=== PATIENT | female | born 1995 | race Caucasian/White ===

== ENCOUNTER 2020-01-27 17:05 | Emergency (ER) | payer OTHER, SELFPAY ==
[2020-01-27 17:32] VITALS: BP 108/48; PULSE 64; RESP 16; TEMP 37.4; O2SAT 99
--- NOTE | 2020-01-27 17:53 | ED.GENADULT ---
HPI - General Adult General Chief complaint: Upper Respiratory Infection Stated complaint: Sore throat Time Seen by Provider: 01/27/20 17:53 Source: patient and RN notes reviewed Mode of arrival: ambulatory Limitations: no limitations History of Present Illness HPI narrative: This is a 24 years old female presented office for evaluation of sore throat for 2-day. Also reports sinus drainage. She has been taking Merced and cough drops for symptom. Denies sick contact at home. She did not receive influenza vaccine for the season. She does not smoke however she does e-cigarettes. Related Data Home Medications Medication Instructions Recorded Confirmed norgestimate-ethinyl estradiol 1 tablet PO DAILY 01/27/20 01/27/20 [Sprintec (28)] sertraline 50 mg PO DAILY 01/27/20 01/27/20 Allergies Allergy/AdvReac Type Severity Reaction Status Date / Time bismuth subsalicylate Allergy Intermediate Itching Verified 01/27/20 17:31 paroxetine [Paxil] AdvReac Intermediate nausea Verified 01/27/20 17:31 Review of Systems Review of Systems: Narrative: CONSTITUTIONAL: Denies fever ENT: Denies rhinorrhea, congestion, otalgia. CARDIOVASCULAR: Denies chest pain, palpitation RESPIRATORY: Denies dyspnea, wheezing, cough GASTROINTESTINAL: Denies abdominal pain, nausea, vomiting, diarrhea. GENITOURINARY: Denies urinary symptoms or discharge SKIN: Denies rash MUSCULOSKELETAL: Denies acute back pain NEUROLOGIC: Denies lightheaded PMFSH Surgical History Surgical History H/O section Social History Social History (Updated 01/27/20 @ 18:24 by ORLY Severino) Tobacco type: e-cigarettes Smokeless tobacco user: dissolvable tobacco Alcohol intake: never Gender identity (if verbalized by the patient): Female Comments At time of signature, I agree with nursing past medical, surgical, social and family history. There is no relevant family history pertinent to the presenting complaint. Exam Narrative: Exam Narrative: GENERAL: This is a well-nourished, well-developed patient, in no apparent distress. EYES: Sclera clear/white. Vision is grossly intact. EARS: External ears normal, auditory canals clear and without drainage, TMs normal without perforation. Hearing grossly intact. NOSE: External nose normal with no obvious nasal discharge, nares without redness, no rhinorrhea. THROAT: Mucous membranes moist, posterior pharynx erythema, tonsils 2+ with exudative NECK: Neck supple, non-tender without lymphadenopathy, masses or thyromegaly. CARDIOVASCULAR: Regular rate and rhythm without murmurs, gallops, or rubs. RESPIRATORY: Clear to auscultation. Breath sounds equal bilaterally. No wheezes, rales, or rhonchi. GASTROINTESTINAL: Abdomen soft, non-tender, nondistended. Bowel sounds are active. No hepato-splenomegaly, or palpable masses. No guarding. SKIN: warm, intact with no suspicious lesions or rash, good texture and turgor. NEURO: awake, alert, and oriented to person, place and time. There were no obvious focal neurologic abnormalities. Steady gait [place] Coma Scale Eye Opening: Spontaneous 4 Luz Coma Scale Motor: Obeys Commands 6 [place] Coma Scale Verbal: Oriented 5 Course Vital Signs Vital signs: Vital Signs Temperature 99.4 F 01/27/20 17:32 Pulse Rate 64 01/27/20 17:32 Respiratory Rate 16 01/27/20 17:32 Blood Pressure 108/48 L 01/27/20 17:32 Pulse Oximetry 99 01/27/20 17:32 Temperature 99.4 F 01/27/20 17:32 Pulse Rate 64 01/27/20 17:32 Respiratory Rate 16 01/27/20 17:32 Blood Pressure 108/48 L 01/27/20 17:32 Pulse Oximetry 99 01/27/20 17:32 Medical Decision Making MDM Narrative Medical decision making narrative: Discharge instructions reviewed with patient, as well as provided in writing per nursing staff. The instructions also include specific and strict return/GO TO THE ER as well as f/u information.
== END 2020-01-27 18:01 | disposition home or self-care (01) ==
PROVIDERS: Emergency Provider Nurse Practitioner; PCP Emergency Medicine
DX: J02.0 Streptococcal pharyngitis (principal); F17.200 Nicotine dependence, unspecified, uncomplicated; M19.90 Unspecified osteoarthritis, unspecified site; F41.9 Anxiety disorder, unspecified; F32.9 Major depressive disorder, single episode, unspecified
CPT/HCPCS: 87880; 99213; G0463

== ENCOUNTER 2020-02-25 08:08 | Emergency (ER) | payer OTHER, SELFPAY ==
[2020-02-25 08:23] VITALS: BP 120/69; PULSE 73; RESP 16; TEMP 37.2; O2SAT 99
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
== END 2020-02-25 09:07 | disposition home or self-care (01) ==
PROVIDERS: Emergency Provider Nurse Practitioner; PCP Emergency Medicine
DX: J02.0 Streptococcal pharyngitis (principal); F17.200 Nicotine dependence, unspecified, uncomplicated; M19.90 Unspecified osteoarthritis, unspecified site; F41.9 Anxiety disorder, unspecified; F32.9 Major depressive disorder, single episode, unspecified
CPT/HCPCS: 87880; 99213; G0463

== ENCOUNTER 2020-05-16 17:38 | Emergency (ER) | payer OTHER, SELFPAY ==
[2020-05-16 17:50] VITALS: BP 124/78; PULSE 81; RESP 20; TEMP 37.5; O2SAT 100
--- NOTE | 2020-05-16 18:07 | ED.GENADULT ---
HPI - General Adult General Chief complaint: Ear Stated complaint: possible ear infection Time Seen by Provider: 05/16/20 18:07 Source: patient and RN notes reviewed Mode of arrival: ambulatory Limitations: no limitations History of Present Illness HPI narrative: 24-year-old female presents with complaints of intermittently bilateral otalgia, itching, and drainage (green-yellow drainage that turns milky white at times) for the past 1-2 months. Melissa says she has been having ear problems off and on for approximately 1 year. Denies swimming or getting water into ear. Trouble hearing. Denies URI symptoms. No high fevers or chills. Denies injury to the ear. No nasal drainage and congestion. Denies tinnitus and dizziness. LMP 1 week ago. Remains active. The patient reports she have not been diagnosed with COVID-19. The patient reports she is not waiting for the results of a COVID-19 lab test. The patient reports she do not have fever, chills, weakness, fatigue, myalgia, or facial swelling. The patient reports she do not have a new or worsening cough or shortness of breath. Denies chest pain. The patient reports she do not have any rhinorrhea, congestion, sore throat, nausea, vomiting, abdominal pain, and diarrhea. Tolerating po intake well. Denies recent traveling. Denies concerns for COVID-19 or exposures been home with limited outdoor exposure except for essential household needs and return home. At this time, patient is not suspected of having COVID-19. Some parts of this dictation were generated by voice recognition software and may contain typographical and/or grammatical inaccuracies. Related Data Home Medications Medication Instructions Recorded Confirmed hydroxyzine HCl 25 mg PO QID 05/16/20 05/16/20 tramadol 05/16/20 Allergies Allergy/AdvReac Type Severity Reaction Status Date / Time bismuth subsalicylate Allergy Intermediate Itching Verified 05/16/20 18:06 paroxetine [Paxil] AdvReac Intermediate nausea Verified 05/16/20 18:06 Review of Systems Review of Systems: Narrative: CONSTITUTIONAL: Denies fever, chills, sweats. EYES: Denies visual changes, redness, discharge. ENT: Denies rhinorrhea, congestion, sore throat. Complains of bilateral otalgia, itching, ear drainage. CARDIOVASCULAR: Denies chest pain, palpitations, edema. RESPIRATORY: Denies dyspnea, wheezing, cough. GASTROINTESTINAL: Denies abdominal pain, nausea, vomiting, diarrhea. GENITOURINARY: Denies dysuria, hematuria, abnormal discharge. SKIN: Denies rash or itching. MUSCULOSKELETAL: Denies acute back pain, joint pain, or myalgia. NEUROLOGIC: Denies numbness or focal weakness. PSYCHIATRIC: Denies anxiety or depression. All systems reviewed & are unremarkable except as noted in HPI and below. [facility] Past Medical History Medical History (Updated 05/17/20 @ 00:00 by Background Darichardon) Anxiety Arthritis Back pain delivery delivered Chronic ear infection Depression Hernia, inguinal, left Surgical History Surgical History H/O section X3 History of hand surgery LT finger sugery History of hernia surgery LT inguinal Family History Family History Father , Hit by a vehicle No problems noted. Mother , Shot in the face No problems noted. Social History Social History Tobacco type: cigarettes and e-cigarettes/vaping Smokeless tobacco user: dissolvable tobacco Alcohol intake: current Alcohol use details: Rarely Substance use: never Living arrangements: with family Occupation/Education: unemployed Gender identity (if verbalized by the patient): Female Comments At time of signature, agree with nurse past medical, surgical, social, and family history. There is relevant patient's past medical
== END 2020-05-16 18:32 | disposition home or self-care (01) ==
PROVIDERS: Emergency Provider Nurse Practitioner Family
DX: H60.93 Unspecified otitis externa, bilateral (principal)
CPT/HCPCS: 99213; G0463

== ENCOUNTER 2020-11-04 02:28 | Emergency (ER) | payer OTHER, SELFPAY ==
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
== END 2020-11-04 02:57 | disposition left against medical advice (07) ==
PROVIDERS: Emergency Provider Emergency Medicine
DX: Z13.88 Encounter for screening for disorder due to exposure to contaminants (principal); M19.90 Unspecified osteoarthritis, unspecified site; F17.290 Nicotine dependence, other tobacco product, uncomplicated
CPT/HCPCS: 99281

== ENCOUNTER 2021-06-18 19:05 | Emergency (ER) | payer OTHER, SELFPAY ==
[2021-06-18 19:39] VITALS: BP 128/84; PULSE 77; RESP 14; TEMP 36.8; O2SAT 100
[2021-06-18 19:43] VITALS: BP 128/84; PULSE 77; RESP 14; TEMP 36.8; O2SAT 100
--- NOTE | 2021-06-18 19:48 | ED.GENADULT ---
HPI - General Adult General Chief complaint: Dental/Oral Stated complaint: dental pain Time Seen by Provider: 06/18/21 19:44 History of Present Illness HPI narrative: Patient is a 25-year-old female comes to the ED today complaining of some dental pain. The pain is in her right upper posterior molar where she has a known cavity yet. The pain has been there for about 3 years. She cannot afford to see a dentist unfortunately. She denies any swelling. She comes to the ED today because she has noticed an increase drainage from the area around the tooth that is foul tasting and consistent with previous dental infections that she has had. Related Data Home Medications Medication Instructions Recorded Confirmed hydroxyzine HCl 25 mg PO QID 05/16/20 05/16/20 tramadol 05/16/20 Allergies Allergy/AdvReac Type Severity Reaction Status Date / Time bismuth subsalicylate Allergy Intermediate Itching Verified 05/16/20 18:06 paroxetine [Paxil] AdvReac Intermediate nausea Verified 05/16/20 18:06 Review of Systems Constitutional: Constitutional: Reports as per HPI, Denies fever(s), Denies night sweats and Denies weakness ENT: Comments: See HPI for dental pain Cardiovascular: Cardiovascular: Denies chest pain, Denies edema, Denies leg edema, Denies dyspnea and Denies orthopnea Respiratory: Respiratory: Denies cough and Denies dyspnea Gastrointestinal: Gastrointestinal: Denies abdominal pain, Denies constipation, Denies diarrhea, Denies nausea and Denies vomiting Musculoskeletal: Musculoskeletal: Denies abnormal gait, Denies back pain, Denies numbness and Denies tingling Neurologic: Denies Abnormal speech present, Denies abnormal gait, Denies numbness, Denies tingling and Denies weakness Psychiatric: Psychiatric: Denies homicidal ideation and Denies suicidal ideation [facility] Past Medical History Medical History Anxiety Arthritis Back pain delivery delivered Chronic ear infection Depression Hernia, inguinal, left Surgical History Surgical History H/O section X3 History of hand surgery LT finger sugery History of hernia surgery LT inguinal Family History Family History Father , Hit by a vehicle No problems noted. Mother , Shot in the face No problems noted. Social History Social History Tobacco type: cigarettes and e-cigarettes/vaping Smokeless tobacco user: dissolvable tobacco Alcohol intake: current Alcohol use details: Rarely Substance use: never Gender identity (if verbalized by the patient): Female Exam Const: General: cooperative, healthy appearing, comfortable, no acute distress, well developed, alert, awake and Physically active Orientation/consciousness: patient oriented x3 HENMT: Head: normal to inspection, normocephalic and atraumatic Ears: external ears normal General nose exam: Normal external nose present Teeth image: 1. Dental carry. This area is tender to palpate. However surrounding gingiva is nonedematous, no induration, no fluctuance Eyes: Pupils: Equal, round and reactive pupils present EOM: EOMs intact bilaterally Neck: Neck: normal visual inspection Chest: Chest palpation & inspection: normal inspection of the chest and no tenderness Resp: Effort & Inspection: normal respiratory effort and able to speak in complete sentences Auscultation: clear to auscultation bilaterally Cardio: Rate: regular rate Rhythm: regular rhythm GI: Inspection: normal to inspection GI Palp: No abdominal tenderness : General: Yes no CVA tenderness Back/Spine/Pelvis: Back: no CVA tenderness Skin: General skin exam: normal color and no rashes or lesions noted Lesions: no lesio
== END 2021-06-18 21:13 | disposition home or self-care (01) ==
LOC: ANHED 21:07
PROVIDERS: Emergency Provider Emergency Medicine; PCP Emergency Medicine
DX: K02.9 Dental caries, unspecified (principal); M19.90 Unspecified osteoarthritis, unspecified site; F17.290 Nicotine dependence, other tobacco product, uncomplicated
CPT/HCPCS: 99283

== ENCOUNTER 2022-01-22 11:59 | Emergency (ER) | payer OTHER, SELFPAY ==
[2022-01-22 12:19] VITALS: BP 129/66; PULSE 98; RESP 18; TEMP 36.7; O2SAT 100
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
== END 2022-01-22 13:00 | disposition left against medical advice (07) ==
PROVIDERS: Emergency Provider Nurse Practitioner Family
DX: R51.9 Headache, unspecified (principal); S09.90XA Unspecified injury of head, initial encounter; V86.15XA Passenger of 3- or 4- wheeled all-terrain vehicle (ATV) injured in traffic accident, initial encounter; M19.90 Unspecified osteoarthritis, unspecified site
CPT/HCPCS: 99212; G0463

== ENCOUNTER 2024-03-28 01:28 | Day surgery (SDC) | payer OTHER, SELFPAY ==
[2024-03-22 14:02] VITALS: BMI 29.9
--- NOTE | 2024-03-22 14:07 | PC.NURSE ---
Report to the Outpatient Waiting Room, entrance under the green pavilion located off [facility], at time _0630_ on date _[id number]_. Planned Procedure Time: _0830_. Time changes happen often and if your time is changed the preop area will call you the afternoon before. - You and your visitor will be asked to self-screen and do not enter if you have any COVID symptoms. - A mask is optional within the hospital at this time. Patients may have clear liquids (water, carbonated beverages, clear teas, apple juice) until 3 hours prior to surgery with a maximum of 20 ounces. - No food from midnight until time of surgery Take the following medications with a SIP of water the morning of surgery: __Propanolol and if needed Hydroxyzine DO NOT STOP ANY OF YOUR OTHER PRESCRIPTION MEDICATIONS PRIOR TO SURGERY ?EXCEPT THE FOLLOWING Medications to discontinue per physician None Date to take last dose Please no make-up, nail hungarian, hairspray, perfume, deodorant, or body powder the day of surgery. No jewelry (including any body piercings) or valuables the day of surgery, leave them at home. Please take a shower or bath the night before, or the morning of, surgery with an antibacterial soap. Wear comfortable, loose fitting clothing. - Jewelry must be removed prior to entering the operating room. Rings and piercings that are not removed may be cut off. - The hospital will not accept responsibility for valuables. - Please leave all valuables, including medications, at home the day of surgery. If you are going home after surgery, a licensed flatbed truck driver must drive you home. - NO public transportation without another adult if you receive anesthesia. - We recommend that an adult stay with you for 24 hours following discharge. - We also recommend that you do not drive, make important decision, drink alcoholic beverages, or take any drugs that were not prescribed by your health care provider for at least 24 hours after your discharge time. Follow any additional instructions given to you from your surgeon. If you or anyone in your household have experienced Covid symptoms in the past week, please notify your surgeon or the nurse liaison at the phone number below for possible testing. Telephone instructions given to __Melissa__and asked if any additional questions and then verbalized understanding. Patient advised to call surgeon office or pre surgery nurse liaison [phone] if any additional questions.
[2024-03-28 06:50] VITALS: BP 143/84; PULSE 58; RESP 18; TEMP 36.6; O2SAT 96
[2024-03-28] MEDS: ACETAMINOPHEN 500 MG TABLET 1000 MG PO (07:35)
[2024-03-28] MEDS: LACTATED RINGERS 1,000 ML 30 ML IV CONT (07:36)
[2024-03-28] MEDS: KETOROLAC 15 MG/ML VIAL (*BKC) IV PUSH (07:36)
--- NOTE | 2024-03-28 08:15 | WPDANESEPPF ---
Anes - Initial Pre Proc Eval Procedure: Operation Date: 03/28/24 08:30 Proposed Procedures p Laparoscopic Bilateral Salpingectomy - Jerald George MD Date/Time: 03/28/24 08:15 Surgeon: Jerald George MD Pre Op Diagnosis: Female Serilization Patient Data Age: 28 Gender: F Height: 1.65 m Weight: 76.1 kg Last Vital Signs Temp 97.9 F 03/28/24 06:50 Pulse 58 L 03/28/24 06:50 Resp 18 03/28/24 06:50 BP 143/84 H 03/28/24 06:50 Pulse Ox 96 03/28/24 06:50 O2 Del Method Room Air 03/28/24 06:50 Allergies Allergy/AdvReac Type Severity Reaction Status Date / Time bismuth subsalicylate Allergy Intermediate Itching Verified 03/28/24 07:10 paroxetine [Paxil] AdvReac Intermediate nausea Verified 03/28/24 07:10 Home Medications Medication Instructions Recorded Confirmed Type fluphenazine decanoate 25 mg/mL 25 mg IM MONTHLY 03/22/24 03/28/24 History injection solution hydroxyzine pamoate 25 mg capsule 25 mg PO QID PRN Anxiety 03/22/24 03/28/24 History propranolol 10 mg tablet 10 mg PO BID 03/22/24 03/28/24 History Patient hx anesthesia problems: none Family hx anesthesia problems: none Results Review: All pre-operative results and documents have been reviewed as part of the pre-operative evaluation. [facility] Past Medical History Medical History Anxiety Arthritis Back pain delivery delivered Chronic ear infection Depression Hernia, inguinal, left Surgical History Surgical History H/O section X3 History of hand surgery LT finger sugery History of hernia surgery LT inguinal Family History Family History Father , Hit by a vehicle No problems noted. Mother , Shot in the face No problems noted. Social History Social History Tobacco type: e-cigarettes/vaping Smokeless tobacco user: dissolvable tobacco Alcohol intake: current Drinks per week: 4 Alcohol use details: Rarely Substance use: never Substance use type: marijuana Other substance usage details: once or twice a day Living arrangements: with family Occupation/Education: unemployed Gender identity (if verbalized by the patient): Female Spiritual care concerns: No Anes - Eval Final PreProcedure Day of Procedure 03/28/24 08:15 Patient weight: normal Heart: regular rate and rhythm Lungs: clear to auscultation Airway: Mallampati scale class II Neurological: alert and oriented Last oral intake: >/= 8 hours ASA classification: II Emergent: no Anesthetic plan: proceed Anesthesia type and monitoring: general ETT and standard monitoring Results Review: All pre-operative results and documents have been reviewed as part of the pre-operative evaluation. Pt vapes daily, vaped this am. Informed Consent: The patient's anesthetic plan and its attendant risks and benefits were discussed with the patient/family/POA. Questions were solicited and answers provided to the satisfaction of the patient/family/POA.
--- NOTE | 2024-03-28 08:44 | PM.IMHP ---
H&P: HPI History of Present Illness Date/Time: 03/28/24 08:44 Chief Complaint: Unwanted fertility Narrative: 28-year-old female with unwanted fertility. We have agreed to perform laparoscopic bilateral salpingectomy The patient understands the details of the procedure. The procedure has been explained in detail. She understands the risks. She understands that injuries may occur that result in hospitalization, more surgery, and severe illness. She understands risk of hemorrhage and infection. She denies any chest pain or shortness of breath. She denies any nausea, vomiting, fever, chills. Review of Systems Review of Systems: All systems reviewed & are unremarkable except as noted in HPI and below Constitutional: Constitutional: Denies chills, Denies fatigue, Denies fever(s) and Denies weakness Eyes: Eyes: Denies blurry vision, Denies change in vision, Denies loss of peripheral vision, Denies loss of vision, Denies other visual disturbances and Denies eye pain ENT: Denies vertigo, Denies dizziness, Denies hearing loss, Denies mouth pain, Denies nasal obstruction, Denies neck mass and Denies neck pain Cardiovascular: Cardiovascular: Denies chest pain, Denies diaphoresis, Denies syncope, Denies leg edema and Denies dyspnea Respiratory: Respiratory: Denies chest congestion, Denies cough, Denies hemoptysis, Denies dyspnea and Denies wheezing Gastrointestinal: Gastrointestinal: Denies abdominal pain, Denies constipation, Denies diarrhea, Denies nausea and Denies vomiting Genitourinary: Genitourinary: Denies hematuria, Denies change in libido, Denies nocturia, Denies genital lesions, Denies flank pain and Denies urinary urgency Musculoskeletal: Musculoskeletal: Denies abnormal gait, Denies back pain, Denies myalgias, Denies arthralgias, Denies joint swelling, Denies muscle weakness and Denies neck pain Integumentary/Breasts: Skin/Breast: Denies swelling, Denies breast pain, Denies breast mass, Denies dry skin, Denies nipple discharge, Denies unusual bruising and Denies jaundice Neurologic: Denies Neuro-related abnormal movements, Denies Abnormal speech present, Denies abnormal gait, Denies behavioral changes, Denies confusion, Denies vertigo, Denies dizziness, Denies syncope, Denies loss of vision, Denies memory loss, Denies convulsions and Denies weakness Psychiatric: Psychiatric: Denies abnormal sleep pattern, Denies behavioral changes, Denies change in libido, Denies confusion, Denies depression, Denies anhedonia and Denies memory loss Endocrine: Endocrine: Reports no additional endocrine complaints, Denies change in libido and Denies fatigue Hematologic/Lymphatic: Hematologic/Lymphatic: Reports no additional hematologic/lymphatic complaints Allergic/Immunologic: Allergic/Immunologic: Reports no additional allergic/immunologic complaints and Denies wheezing PMFSH Past Medical History Medical History Anxiety Arthritis Back pain delivery delivered Chronic ear infection Depression Hernia, inguinal, left Surgical History Surgical History H/O section X3 History of hand surgery LT finger sugery History of hernia surgery LT inguinal Family History Family History Father , Hit by a vehicle No problems noted. Mother , Shot in the face No problems noted. Social History Social History Tobacco type: e-cigarettes/vaping Smokeless tobacco user: dissolvable tobacco Alcohol intake: current Drinks per week: 4 Alcohol use details: Rarely Substance use: never Substance use type: marijuana Other substance usage details: once or twice a day Living arrangements: with family Occupation/Education: unemployed Gender identity (
--- NOTE | 2024-03-28 08:50 | WPDHPUPDATE1 ---
History and Physical Update Update Date/Time: 03/28/24 08:50 History and Physical has been reviewed, including an updated exam of the patient. There are NO changes in the patient's condition. Risks, benefits, and alternatives have been discussed and questions answered. Patient agrees to proceed with procedure.
[2024-03-28 09:53] VITALS: BP 138/103; PULSE 86; RESP 13; TEMP 36.7; O2SAT 97
[2024-03-28 10:05] VITALS: BP 132/94; PULSE 74; RESP 14; O2SAT 99
[2024-03-28] MEDS: fentaNYL CITRATE INJ (*CRX) 100 MCG/2 ML VIAL 25 MCG IV PUSH ×2 (10:12→10:15)
[2024-03-28 10:20] VITALS: BP 146/99; PULSE 72; RESP 14; O2SAT 96
[2024-03-28 10:26] VITALS: BP 147/104; PULSE 63; RESP 14
[2024-03-28] MEDS: oxyCODONE HCL (*CRX) 5 MG TAB IR PO (10:40)
--- NOTE | 2024-03-28 11:16 | SUR.PHASEII ---
DR. SHELDON CALLED RE: ELEVATED BP. INSTRUCTED TO GIVE HER HER AM PROPRANOLOL DOSE.
[2024-03-28] MEDS: PROPRANOLOL HCL 10 MG TABLET PO (11:26)
--- NOTE | 2024-04-11 19:23 | P.OP_ITS ---
Procedure Note - Detailed Date of Procedure 04/11/24 Pre-op Diagnosis Female Serilization Post-op Diagnosis Same Procedure Performed Laparoscopic bilateral salpingectomy Surgeon Jerald George MD Anesthesia General Indications Unwanted fertility Findings Normal pelvic anatomy Description of Procedure The patient was taken the operating room. She was prepped and draped in the dorsal lithotomy position after induction of general anesthesia. A 5 mm skin incision was made in the left upper quadrant of the abdominal skin. A 5 mm trocar was inserted the intra-abdominal cavity under direct visualization of the scope. Pneumoperitoneum was achieved. A 5 mm trocar was inserted in the left lower quadrant identical fashion. A 5 mm infraumbilical trocar was inserted in identical fashion as well. The bilateral fallopian tubes were removed. This was done by using a LigaSure cautery. The mesosalpinx adjacent to the tube was cauterized transected with LigaSure. This was initiated in the area the ovary a nd in a stepwise fashion moved medially to the area of the cornu of the uterus. Once there the fallopian tube was cauterized and transected. This was done in identical fashion on each side. The fallopian tubes were taken out through the left lower quadrant trocar site. The pneumoperitoneum was reduced. The trocars removed. The skin was closed with subcuticular 4 Monocryl and covered with Damaso mabond. She was taken to cover stable condition. Sponge lap and needle counts were correct x2. Estimated Blood Loss 5 Drains No Packing No Pathology Yes Complications No immediate complications Condition Stable Disposition PACU
== END 2024-03-28 11:27 | disposition home or self-care (01) ==
PROVIDERS: PCP Emergency Medicine; Visit Provider Obstetrics & Gynecology
PROC: (CPT 49320; principal; 2024-03-28 08:30)
DX: Z30.2 Encounter for sterilization (principal); F12.90 Cannabis use, unspecified, uncomplicated; F17.290 Nicotine dependence, other tobacco product, uncomplicated
CPT/HCPCS: 58661; 88302; A9270; J1100; J1885; J2250; J2405; J2704; J3010; J7030; J7120